=== PATIENT | male | born 1950 | race African-American/Black ===

== ENCOUNTER 2017-04-26 15:54 | Inpatient (IN) | payer MEDICAID ==
[~2017-04-26] VITALS: Ht 172.7 cm; Wt 61.7 kg
[~2017-04-26 15:54] MED LIST: ALBU90AE IH; ASPI-1159 PO; Folic Acid PO; Lisinopril PO; Metoprolol Tartrate PO; Thiamine Hcl PO
[2017-04-26] MEDS ORDERED: SODIUM CHLORIDE 0.9% 1,000 ML IV ONE (18:40)
[2017-04-26] MEDS ORDERED: ACETAMINOPHEN 325MG TABLET PO ONE (18:45)
[2017-04-26 19:18] LABS: HEMATOCRIT. 36.6 % (42.0-52.0); HEMOGLOBIN. 11.9 g/dL (14.0-18.0); MEAN CORPUSCULAR HEMOGLOBIN 26.8 pg (28.0-32.0); MEAN CORPUSCULAR VOLUME 82.7 fL (80.0-94.0); MEAN PLATELET VOLUME 8.4 fl (7.4-10.4); PLATELET 143 x1000/uL (130-400); RED BLOOD CELL COUNT 4.43 mill/uL (4.7-6.1); RED CELL DISTRIBUTION WIDTH 15.1 % (11.6-14.6)
[2017-04-26 19:27] LABS: CHLORIDE 102 mEq/L (98-107)
[2017-04-26 19:30] LABS: CARBON DIOXIDE 20 mEq/L (21-32)
[2017-04-26 19:35] LABS: TROPONIN I < 0.02 ng/mL (0.00-0.04)
[2017-04-26 19:36] LABS: CREATINE KINASE MB FRACTION 4.5 ng/mL (0.5-3.6)
[2017-04-26 20:05] LABS: PLATELET ESTIMATE NORMAL
[2017-04-26] MEDS ORDERED: ASPIRIN 325MG EC TABLET PO ONE (20:15)
[2017-04-26] MEDS ORDERED: DEXTROSE 50% WATER 50ML SYRINGE IV ONE (20:15)
[2017-04-26] MEDS ORDERED: CEFTRIAXONE 1 G PREMIX 50 ML IV ONE (20:30)
[2017-04-26 22:02] VITALS: BP 167/87
[2017-04-26 23:10] VITALS: BP 167/87
[2017-04-27] VITALS: BP 152/80
[2017-04-27] MEDS ORDERED: IPRATROPIUM/ALBUTEROL 0.5-3(2.5)MG/3ML NEB HHN PRN ×2 (00:15)
[2017-04-27] MEDS ORDERED: DEXTROSE 50% WATER 50ML SYRINGE IV PRN (00:30)
[2017-04-27] MEDS ORDERED: CLONIDINE 0.1MG TABLET PO PRN (00:30)
[2017-04-27 04:00] VITALS: BP 150/72
[2017-04-27] MEDS: SODIUM CHLORIDE 0.9% 1,000 ML IV SCH ×2 (04:06→13:17)
[2017-04-27 04:57] LABS: CLARITY URINE CLEAR (CLEAR); COLOR URINE YELLOW (YELLOW); GLUCOSE URINE NEGATIVE (NEGATIVE); KETONES URINE TRACE (NEGATIVE); LEUKOCYTE ESTERASE URINE NEGATIVE (NEGATIVE); NITRITE URINE NEGATIVE (NEGATIVE); OCCULT BLOOD URINE NEGATIVE (NEGATIVE); PH URINE 5.5 (4.5-8.0); PROTEIN URINE 2+ (NEGATIVE); SPECIFIC GRAVITY URINE 1.019 (1.005-1.030)
[2017-04-27 05:31] LABS: HEMATOCRIT. 30.8 % (42.0-52.0); HEMOGLOBIN. 10.1 g/dL (14.0-18.0); MEAN CORPUSCULAR HEMOGLOBIN 26.8 pg (28.0-32.0); MEAN CORPUSCULAR VOLUME 81.7 fL (80.0-94.0); PLATELET 126 x1000/uL (130-400); RED BLOOD CELL COUNT 3.77 mill/uL (4.7-6.1)
[2017-04-27] MEDS: BLOOD SUGAR DIAGNOSTIC STRIP TEST SCH ×4 (06:26→20:32)
[2017-04-27 08:00] VITALS: BP 174/97
[2017-04-27] MEDS: ENOXAPARIN 30MG/0.3ML SYR SUBCUT SCH (08:27)
[2017-04-27] MEDS: ASPIRIN 81MG EC TABLET PO SCH (08:27)
[2017-04-27] MEDS ORDERED: ENOXAPARIN 40MG/0.4ML SYR SUBCUT SCH (09:00)
[2017-04-27 12:00] VITALS: BP 157/87
[2017-04-27] MEDS: AMLODIPINE 5MG TABLET PO SCH ×2 (13:20→20:41)
[2017-04-27 13:34] LABS: *AMPHETAMINES SCREEN URINE NEGATIVE (NEGATIVE); *BARBITURATES SCREEN URINE NEGATIVE (NEGATIVE); *BENZODIAZEPINES SCREEN URINE NEGATIVE (NEGATIVE); *COCAINE SCREEN URINE PRESUMTIVE POSITIVE (NEGATIVE); CANNABINOID URINE SCREEN NEGATIVE (NEGATIVE); METHADONE URINE SCREEN NEGATIVE (NEGATIVE); OPIATES URINE SCREEN NEGATIVE (NEGATIVE); PHENCYCLIDINE URINE SCREEN NEGATIVE (NEGATIVE)
[2017-04-27 16:00] VITALS: BP 148/91
[2017-04-27 18:17] LABS: NUCLEATED RED BLOOD CELLS 1 /100 WBC
[2017-04-27 18:18] LABS: PLATELET ESTIMATE SLIGHTLY DECREASED
[2017-04-27 20:00] VITALS: BP 154/92
[2017-04-27] MEDS: LISINOPRIL 20MG TABLET PO SCH (20:40)
[2017-04-27] MEDS ORDERED: ZOLPIDEM TARTRATE 5MG TABLET PO PRN (21:00)
[2017-04-27] MEDS: HYDRALAZINE HCL 50MG TABLET PO SCH (22:43)
[2017-04-28] VITALS: BP 150/85
[2017-04-28] MEDS: SODIUM CHLORIDE 0.9% 1,000 ML IV SCH (03:10)
[2017-04-28 04:00] VITALS: BP 120/84
[2017-04-28] MEDS: HYDRALAZINE HCL 50MG TABLET PO SCH (06:26)
[2017-04-28] MEDS: HYDROCODONE/ACETAMINOPHEN 5/325MG TABLET PO PRN ×4 (06:29→21:07)
[2017-04-28] MEDS: BLOOD SUGAR DIAGNOSTIC STRIP TEST SCH ×3 (06:31→20:25)
[2017-04-28 08:30] VITALS: BP 153/69
[2017-04-28] MEDS: ASPIRIN 81MG EC TABLET PO SCH (08:31)
[2017-04-28] MEDS: LISINOPRIL 20MG TABLET PO SCH (08:31)
[2017-04-28] MEDS: AMLODIPINE 5MG TABLET PO SCH ×2 (08:32→21:00)
[2017-04-28] MEDS: ENOXAPARIN 30MG/0.3ML SYR SUBCUT SCH (08:32)
[2017-04-28 12:00] VITALS: BP 113/73
[2017-04-28 15:31] LABS: HEMATOCRIT. 32.2 % (42.0-52.0); HEMOGLOBIN. 10.4 g/dL (14.0-18.0); MEAN CORPUSCULAR HEMOGLOBIN 26.6 pg (28.0-32.0); MEAN CORPUSCULAR VOLUME 82.2 fL (80.0-94.0); MEAN PLATELET VOLUME 8.8 fl (7.4-10.4); PLATELET 129 x1000/uL (130-400); RED BLOOD CELL COUNT 3.91 mill/uL (4.7-6.1)
[2017-04-28 16:00] VITALS: BP 150/70
[2017-04-28] MEDS: HYDRALAZINE HCL 100MG TABLET PO SCH ×2 (16:05→21:05)
[2017-04-28 16:34] LABS: PLATELET ESTIMATE SLIGHTLY DECREASED
[2017-04-28 20:00] VITALS: BP 118/52
[2017-04-29] VITALS: BP 109/68
[2017-04-29] MEDS: HYDROCODONE/ACETAMINOPHEN 5/325MG TABLET PO PRN (03:28)
[2017-04-29 04:00] VITALS: BP 126/63
[2017-04-29] MEDS: BLOOD SUGAR DIAGNOSTIC STRIP TEST SCH (05:20)
[2017-04-29] MEDS: SODIUM CHLORIDE 0.9% 1,000 ML IV SCH (05:20)
[2017-04-29] MEDS: HYDRALAZINE HCL 100MG TABLET PO SCH (05:21)
[2017-04-29 06:19] LABS: EOSINOPHILS % 3.8 % (0.0-5.0); HEMOGLOBIN. 10.2 g/dL (14.0-18.0); LYMPHOCYTES % 25.5 % (20.0-50.0); MEAN CORPUSCULAR HEMOGLOBIN 26.7 pg (28.0-32.0); MEAN CORPUSCULAR VOLUME 81.5 fL (80.0-94.0); MEAN PLATELET VOLUME 9.2 fl (7.4-10.4); MONOCYTES % 14.6 % (2.0-8.0); NEUTROPHILS % 55.1 % (40.0-76.0); PLATELET 135 x1000/uL (130-400); RED BLOOD CELL COUNT 3.81 mill/uL (4.7-6.1); RED CELL DISTRIBUTION WIDTH 15.2 % (11.6-14.6)
[2017-04-29 08:00] VITALS: BP 117/62
[2017-04-29] MEDS: ASPIRIN 81MG EC TABLET PO SCH (08:36)
[2017-04-29] MEDS: AMLODIPINE 5MG TABLET PO SCH (08:36)
[2017-04-29] MEDS: ENOXAPARIN 30MG/0.3ML SYR SUBCUT SCH (08:37)
[2017-04-29 09:33] VITALS: BP 117/62
[2017-04-29 12:00] VITALS: BP 131/73
== END 2017-04-29 17:53 | disposition home or self-care (01) | DRG 204 ==
LOC: ER 17:25 → 5WST 20:25 → EDBEDREQ 20:32 → ENRESERV 21:05
PROVIDERS: ADMIT Internal Medicine; ATTEND Internal Medicine
DX: I95.1 Orthostatic hypotension (principal); N17.0 Acute kidney failure with tubular necrosis; E87.2 Acidosis; D50.9 Iron deficiency anemia, unspecified; I13.10 Hypertensive heart and chronic kidney disease without heart failure, with stage 1 through stage 4 chronic kidney disease, or unspecified chronic kidney disease; F14.10 Cocaine abuse, uncomplicated; I69.354 Hemiplegia and hemiparesis following cerebral infarction affecting left non-dominant side; E87.1 Hypo-osmolality and hyponatremia; F10.10 Alcohol abuse, uncomplicated; F17.210 Nicotine dependence, cigarettes, uncomplicated; N18.9 Chronic kidney disease, unspecified; E16.2 Hypoglycemia, unspecified; F19.10 Other psychoactive substance abuse, uncomplicated; J44.9 Chronic obstructive pulmonary disease, unspecified; B19.20 Unspecified viral hepatitis C without hepatic coma; Z82.49 Family history of ischemic heart disease and other diseases of the circulatory system; Z83.3 Family history of diabetes mellitus; Z79.899 Other long term (current) drug therapy; Z79.82 Long term (current) use of aspirin
CPT/HCPCS: 36415; 70450; 70486; 70544; 70553; 71010; 80048; 80053; 80305; 81001; 82553; 82962; 83036; 84484; 85025; 87086; 93005; 93306; 93880; 96374; 96375; 97162; 97166; 99285; C1893; G0482; J0696; J1650; J7030

== ENCOUNTER 2017-08-04 16:47 | Emergency (ER) | payer MEDICAID ==
[~2017-08-04] VITALS: Ht 175.3 cm; Wt 68.0 kg
[~2017-08-04 16:47] MED LIST changes: +AMLO10TA80 PO; +AZIT500T5 PO; +LIP40 PO; +LISI40TA4 PO; -Lisinopril PO; -Metoprolol Tartrate PO; +P50 PO
[2017-08-04] MEDS ORDERED: IPRATROPIUM/ALBUTEROL 0.5-3(2.5)MG/3ML NEB HHN ONE (22:00)
[2017-08-04 23:07] LABS: BASOPHILS % 0.5 % (0.0-2.0); EOSINOPHILS % 1.5 % (0.0-5.0); HEMATOCRIT. 31.4 % (42.0-52.0); HEMOGLOBIN. 10.3 g/dL (14.0-18.0); LYMPHOCYTES % 7.1 % (20.0-50.0); MEAN CORPUSCULAR HEMOGLOBIN 27.4 pg (28.0-32.0); MEAN CORPUSCULAR VOLUME 83.8 fL (80.0-94.0); MEAN PLATELET VOLUME 7.6 fl (7.4-10.4); MONOCYTES % 10.5 % (2.0-8.0); NEUTROPHILS % 80.4 % (40.0-76.0); PLATELET 430 x1000/uL (130-400); RED BLOOD CELL COUNT 3.75 mill/uL (4.7-6.1); RED CELL DISTRIBUTION WIDTH 16.1 % (11.6-14.6)
[2017-08-04 23:15] LABS: INR 1.1; PARTIAL THROMBOPLASTIN TIME 21.9 sec (23.4-31.0)
[2017-08-04] MEDS ORDERED: FENTANYL CITRATE/PF 500 MCG in SODIUM CHLORIDE 0.9% 40 ML IV PRN (23:15)
[2017-08-04 23:23] LABS: CARBON DIOXIDE 23 mEq/L (21-32); CHLORIDE 101 mEq/L (98-107); TROPONIN I < 0.02 ng/mL (0.00-0.04)
[2017-08-05 01:20] VITALS: BP 130/75
== END 2017-08-05 01:27 | disposition home or self-care (01) ==
LOC: ER 17:19
DX: J44.1 Chronic obstructive pulmonary disease with (acute) exacerbation (principal); I10 Essential (primary) hypertension; Z79.82 Long term (current) use of aspirin; Z86.73 Personal history of transient ischemic attack (TIA), and cerebral infarction without residual deficits; Z79.899 Other long term (current) drug therapy
CPT/HCPCS: 36415; 71045; 80053; 83690; 83880; 84484; 85025; 85610; 85730; 93005; 94640; 99285; G0482; J7620; Z7610

== ENCOUNTER 2017-09-11 18:54 | Emergency (ER) | payer MEDICAID ==
[~2017-09-11] VITALS: Ht 175.3 cm; Wt 51.0 kg
[2017-09-11] MEDS ORDERED: METHYLPREDNISOLONE SOD SUCC 125 MG/2 ML VIAL IV STA (21:31)
[2017-09-11] MEDS ORDERED: KETOROLAC 30MG/ML VIAL IV STA (21:31)
[2017-09-11] MEDS ORDERED: IPRATROPIUM/ALBUTEROL 0.5-3(2.5)MG/3ML NEB HHN ONE (21:45)
[2017-09-11 21:58] LABS: BASOPHILS % 0.9 % (0.0-2.0); EOSINOPHILS % 6.6 % (0.0-5.0); HEMOGLOBIN. 8.7 g/dL (14.0-18.0); LYMPHOCYTES % 20.3 % (20.0-50.0); MEAN CORPUSCULAR HEMOGLOBIN 28.4 pg (28.0-32.0); MEAN CORPUSCULAR VOLUME 85.2 fL (80.0-94.0); MEAN PLATELET VOLUME 7.2 fl (7.4-10.4); NEUTROPHILS % 64.2 % (40.0-76.0); PLATELET 277 x1000/uL (130-400); RED BLOOD CELL COUNT 3.05 mill/uL (4.7-6.1)
[2017-09-11 22:05] LABS: PARTIAL THROMBOPLASTIN TIME 26.6 sec (23.4-31.0); PROTHROMBIN TIME 10.7 sec (9.4-11.6)
[2017-09-11 22:08] LABS: CHLORIDE 102 mEq/L (98-107)
[2017-09-12 00:28] VITALS: BP 150/100
== END 2017-09-12 00:35 | disposition home or self-care (01) ==
LOC: ER 18:54
DX: J44.0 Chronic obstructive pulmonary disease with (acute) lower respiratory infection (principal); J20.9 Acute bronchitis, unspecified; M79.605 Pain in left leg; I10 Essential (primary) hypertension; F17.200 Nicotine dependence, unspecified, uncomplicated; Z79.82 Long term (current) use of aspirin; Z86.73 Personal history of transient ischemic attack (TIA), and cerebral infarction without residual deficits
CPT/HCPCS: 36415; 71045; 80053; 83605; 83880; 84484; 85025; 85610; 85730; 87040; 87804; 93005; 94640; 96374; 96375; 99285; J1885; J2930; J7620; Z7610

== ENCOUNTER 2018-07-09 13:27 | Inpatient (IN) | payer MEDICAID ==
[~2018-07-09] VITALS: Ht 170.2 cm; Wt 52.8 kg
[2018-07-09] VITALS (24 sets, daily range): BP systolic 34–114; BP diastolic 14–77
[~2018-07-09 13:27] MED LIST changes: -ALBU90AE IH; +AMIODARONE HCL 50MG/ML 3ML VIAL IV ONE; -AMLO10TA80 PO; -ASPI-1159 PO; -AZIT500T5 PO; +CALCIUM CHLORIDE 1GM/10ML SYR IV ONE; +EPINEPHRINE 0.1MG/ML (1:10,000) 10ML SYR ONE; +ETOMIDATE 2MG/ML 10ML VIAL IV ONE; -Folic Acid PO; -LIP40 PO; -LISI40TA4 PO; -P50 PO; +SUCCINYLCHOLINE CHLORIDE 200MG/10ML IV ONE; -Thiamine Hcl PO
[2018-07-09] MEDS ORDERED: IPRATROPIUM BROMIDE (0.02%) 0.5MG/2.5ML NEB HHN STA (13:36)
[2018-07-09] MEDS ORDERED: ALBUTEROL (0.083%) 2.5MG/3ML NEB HHN STA (13:36)
[2018-07-09] MEDS ORDERED: METHYLPREDNISOLONE SOD SUCC 125 MG/2 ML VIAL IV STA (13:36)
[2018-07-09] MEDS ORDERED: SODIUM CHLORIDE 0.9% 1000ML BAG (SEPSIS BOLUS) IV ONE (13:45)
[2018-07-09] MEDS ORDERED: LEVOFLOXACIN 750MG PREMIX 150 ML IV ONE (13:45)
[2018-07-09] MEDS ORDERED: PROPOFOL 10MG/ML 100ML 100 ML IV PRN ×2 (14:15→17:45)
[2018-07-09] MEDS ORDERED: LIDOCAINE HCL 1% 20ML VIAL (Pyxis) INJ ONE (14:22)
[2018-07-09 14:33] LABS: BG BASE EXCESS -18.1 mmol/L (-2.0-2.0); BG CARBOXYHEMOGLOBIN 0.5 % (0.5-1.5); BG DEOXYHEMOGLOBIN 13.8 % (0.0-5.0); BG FRACTION INSPIRED OXYGEN 100; BG HCO3 ACT 14.3 mmol/L (22.0-26.0); BG METHEMOGLOBIN 0.4 % (0.0-1.5); BG OXYGEN SATURATION 86.1 % (92.0-98.5); BG OXYHEMOGLOBIN 85.3 % (94.0-97.0); BG PCO2 73.8 mmHg (35.0-45.0); BG PH 6.906 (7.350-7.450); BG PO2 76.5 mmHg (75.0-100.0); BG SAMPLE SITE LEFT BRACHIAL; BG TIDAL VOLUME(mL) 500 mL; BG TOTAL HEMOGLOBIN 9.3 g/dL (12.0-18.0); BG VENT MODE VENT - A/C; BG VENT RATE 14 set
[2018-07-09] MEDS ORDERED: LACTATED RINGERS 1,000 ML IV SCH (14:45)
[2018-07-09 14:54] LABS: CHLORIDE 106 mEq/L (98-107); HEMATOCRIT. 32.2 % (42.0-52.0); HEMOGLOBIN. 9.8 g/dL (14.0-18.0); MEAN CORPUSCULAR VOLUME 88.6 fL (80.0-94.0); MEAN PLATELET VOLUME 8.3 fl (7.4-10.4); PLATELET 163 x1000/uL (130-400); RED BLOOD CELL COUNT 3.64 mill/uL (4.7-6.1); RED CELL DISTRIBUTION WIDTH 15.7 % (11.6-14.6)
[2018-07-09 15:03] LABS: ETHANOL BLOOD < 10 mg/dL
[2018-07-09 15:07] LABS: CLARITY URINE CLOUDY (CLEAR); COLOR URINE YELLOW (YELLOW); KETONES URINE NEGATIVE (NEGATIVE); LEUKOCYTE ESTERASE URINE NEGATIVE (NEGATIVE); NITRITE URINE NEGATIVE (NEGATIVE); OCCULT BLOOD URINE 1+ (NEGATIVE); PROTEIN URINE 3+ (NEGATIVE); SPECIFIC GRAVITY URINE 1.016 (1.005-1.030); UROBILINOGEN URINE 0.2 E.U./dL (0.2-1.0)
[2018-07-09 15:16] LABS: *AMPHETAMINES SCREEN URINE NEGATIVE (NEGATIVE); *BARBITURATES SCREEN URINE NEGATIVE (NEGATIVE); *BENZODIAZEPINES SCREEN URINE NEGATIVE (NEGATIVE)
[2018-07-09 15:17] LABS: *COCAINE SCREEN URINE PRESUMTIVE POSITIVE (NEGATIVE); CANNABINOID URINE SCREEN NEGATIVE (NEGATIVE); METHADONE URINE SCREEN NEGATIVE (NEGATIVE); OPIATES URINE SCREEN NEGATIVE (NEGATIVE); PHENCYCLIDINE URINE SCREEN NEGATIVE (NEGATIVE)
[2018-07-09] MEDS ORDERED: VANCOMYCIN 1 G PREMIX 200 ML IV NR (15:32)
[2018-07-09] MEDS ORDERED: PIPERACILLIN/TAZ 3.375G PREMIX 50 ML IV NR (15:33)
[2018-07-09] MEDS: NOREPINEPHRINE 4 MG in DEXT 5% WATER 246 ML IV ONE ×2 (15:50→15:51)
[2018-07-09] MEDS: NOREPINEPHRINE 4MG/250ML PMX 250 ML IV NR ×2 (15:50→15:51)
[2018-07-09 16:17] LABS: BG BASE EXCESS -19.1 mmol/L (-2.0-2.0); BG CARBOXYHEMOGLOBIN 0.3 % (0.5-1.5); BG DEOXYHEMOGLOBIN 1.7 % (0.0-5.0); BG FRACTION INSPIRED OXYGEN 100; BG HCO3 ACT 12.3 mmol/L (22.0-26.0); BG METHEMOGLOBIN 0.7 % (0.0-1.5); BG OXYGEN SATURATION 98.3 % (92.0-98.5); BG OXYHEMOGLOBIN 97.3 % (94.0-97.0); BG PCO2 58.5 mmHg (35.0-45.0); BG PH 6.939 (7.350-7.450); BG PO2 184.1 mmHg (75.0-100.0); BG SAMPLE SITE LEFT BRACHIAL; BG TIDAL VOLUME(mL) 500 mL; BG TOTAL HEMOGLOBIN 8.6 g/dL (12.0-18.0); BG VENT MODE VENT - A/C; BG VENT RATE 20 set
[2018-07-09 16:22] LABS: NUCLEATED RED BLOOD CELLS 1 /100 WBC; PLATELET ESTIMATE NORMAL
[2018-07-09] MEDS ORDERED: IPRATROPIUM/ALBUTEROL 0.5-3(2.5)MG/3ML NEB HHN PRN (16:30)
[2018-07-09] MEDS ORDERED: PHENYLEPHRINE 10 MG in DEXT 5% WATER 249 ML IV NR (17:00)
[2018-07-09] MEDS ORDERED: PHENYLEPHRINE 10 MG in DEXT 5% WATER 249 ML IV PRN (17:00)
[2018-07-09 17:09] LABS: INR 1.2; PARTIAL THROMBOPLASTIN TIME 33.1 sec (23.4-31.0); PROTHROMBIN TIME 11.9 sec (9.1-11.1)
[2018-07-09] MEDS ORDERED: IPRATROPIUM/ALBUTEROL 0.5-3(2.5)MG/3ML NEB HHN SCH (18:00)
[2018-07-09] MEDS ORDERED: BUDESONIDE 0.5MG/2ML NEB HHN SCH (18:00)
[2018-07-09] MEDS ORDERED: VASOPRESSIN 10 UNIT in SODIUM CHLORIDE 0.9% 99.5 ML IV PRN ×2 (18:15→23:15)
[2018-07-09] MEDS ORDERED: NOREPINEPHRINE 16 MG in DEXT 5% WATER 234 ML IV PRN (18:30)
[2018-07-09] MEDS ORDERED: PHENYLEPHRINE 40 MG in DEXT 5% WATER 246 ML IV PRN (18:30)
[2018-07-09 18:44] LABS: BG BASE EXCESS -14.2 mmol/L (-2.0-2.0); BG FRACTION INSPIRED OXYGEN 100; BG HCO3 ACT 15.9 mmol/L (22.0-26.0); BG METHEMOGLOBIN 0.3 % (0.0-1.5); BG OXYHEMOGLOBIN 96.7 % (94.0-97.0); BG PCO2 59.4 mmHg (35.0-45.0); BG PH 7.045 (7.350-7.450); BG PO2 120.4 mmHg (75.0-100.0); BG SAMPLE SITE RIGHT BRACHIAL; BG VENT MODE VENT - A/C; BG VENT RATE 28 set
[2018-07-09] MEDS ORDERED: SODIUM BICARBONATE 8.4% 1 MEQ/ML 50ML SYR IV NR (19:00)
[2018-07-09] MEDS ORDERED: SODIUM BICARBONATE 200 MEQ in DEXTROSE 5% WATER 1,000 ML IV SCH (19:00)
[2018-07-09] MEDS ORDERED: ENOXAPARIN 30MG/0.3ML SYR SUBCUT SCH (20:00)
[2018-07-09] MEDS ORDERED: VANCOMYCIN 1500MG in DEXTROSE 5% WATER 250ML IV NR (21:00)
[2018-07-09] MEDS ORDERED: PIPERACILLIN/TAZ 3.375G PREMIX 50 ML IV SCH (22:00)
[2018-07-09] MEDS ORDERED: EPINEPHRINE 1 MG in SODIUM CHLORIDE 0.9% 249 ML IV PRN (23:15)
[2018-07-10] MEDS ORDERED: PIPERACILLIN/TAZ 2.25G PREMIX 50 ML IV SCH (06:00)
[2018-07-10] MEDS ORDERED: PANTOPRAZOLE SODIUM 40 MG/VIAL IV SCH (09:00)
== END 2018-07-09 20:11 | disposition expired | DRG 720 ==
LOC: ER 13:40 → EDBEDREQ 13:41 → CVICU 16:01 → EDBEDREQTM 16:04 → EDBEDREQ 16:04 → ENRESERV 16:07
PROVIDERS: ADMIT Internal Medicine; ATTEND Internal Medicine
PROC: 5A1935Z Respiratory Ventilation, Less than 24 Consecutive Hours (ICD-10-PCS; principal; 2018-07-09)
PROC: 02HV33Z Insertion of Infusion Device into Superior Vena Cava, Percutaneous Approach (ICD-10-PCS; 2018-07-09)
PROC: B548ZZA Ultrasonography of Superior Vena Cava, Guidance (ICD-10-PCS; 2018-07-09)
DX: A41.9 Sepsis, unspecified organism (principal); I46.9 Cardiac arrest, cause unspecified; E43 Unspecified severe protein-calorie malnutrition; R65.21 Severe sepsis with septic shock; G93.41 Metabolic encephalopathy; J18.1 Lobar pneumonia, unspecified organism; J96.01 Acute respiratory failure with hypoxia; J96.02 Acute respiratory failure with hypercapnia; E87.4 Mixed disorder of acid-base balance; I13.0 Hypertensive heart and chronic kidney disease with heart failure and stage 1 through stage 4 chronic kidney disease, or unspecified chronic kidney disease; I50.22 Chronic systolic (congestive) heart failure; N17.9 Acute kidney failure, unspecified; I42.9 Cardiomyopathy, unspecified; D64.9 Anemia, unspecified; F14.90 Cocaine use, unspecified, uncomplicated; F17.210 Nicotine dependence, cigarettes, uncomplicated; I69.351 Hemiplegia and hemiparesis following cerebral infarction affecting right dominant side; I69.354 Hemiplegia and hemiparesis following cerebral infarction affecting left non-dominant side; J44.0 Chronic obstructive pulmonary disease with (acute) lower respiratory infection; N18.9 Chronic kidney disease, unspecified; Z82.49 Family history of ischemic heart disease and other diseases of the circulatory system; Z91.15 Patient's noncompliance with renal dialysis; Z83.3 Family history of diabetes mellitus; Z68.1 Body mass index [BMI] 19.9 or less, adult
CPT/HCPCS: 31500; 36415; 36569; 36600; 71045; 76937; 80305; 80307; 80329; 82375; 82805; 82962; 83605; 84145; 92950; 96365; 99291; C1725; C1752; G0482; J0282; J0330; J1956; J2370; J2543; J2704; J2930; J3370; J3490; J7030; J7040; J7060; J7070; J7611